=== PATIENT | male | born 1995 | race Caucasian/White ===

== ENCOUNTER 2017-02-05 17:43 | Emergency (ER) | payer BC ==
[2017-02-05 17:50] VITALS: BP 131/86
--- NOTE | 2017-02-05 17:54 | UC ---
Upper Extremity HPI - History of Current Complaint Chief Complaint: UCUpperExtremity Stated Complaint: HAND INJURY Time Seen by Provider: 02/05/17 17:52 Hx Obtained From: Patient Onset/Duration: Lasting Days Severity Initially: Moderate Severity Currently: Moderate Pain Scale Used: 0-10 Numeric - 5 Character: Sharp, Dull Aggravating Factor(s): Flexion, Extension Alleviating Factor(s): Compression, Elevation Associated Signs And Symptoms: Positive: Negative - Allergies/Home Medications Allergies/Adverse Reactions: Allergies Allergy/AdvReac Type Severity Reaction Status Date / Time No Known Allergies Allergy Verified 02/05/17 17:46 PMH/Surg Hx/FS Hx/Imm Hx Previously Healthy: Yes - Surgical History Surgical History: Yes Surgery Procedure, Year, and Place: acl left knee - Family History Known Family History: Positive: None - Social History Alcohol Use: None Substance Use Type: None Smoking Status (MU): Current Every Day Smoker Household Exposure Type: Cigarettes Review of Systems Constitutional: Negative Skin: Negative Eyes: Negative ENT: Negative Respiratory: Negative Cardiovascular: Negative Gastrointestinal: Negative Genitourinary: Negative Motor: Negative Neurovascular: Negative Musculoskeletal: Other: - RIGHT HAND PAIN Neurological: Negative Psychological: Negative All Other Systems Reviewed And Are Negative: Yes Physical Exam Triage Information Reviewed: Yes Vital Signs: Initial Vital Signs Temp 37.2 C 02/05/17 17:47 Pulse 85 02/05/17 17:47 Resp 16 02/05/17 17:47 BP 131/86 02/05/17 17:47 Pulse Ox 99 02/05/17 17:47 Eye Exam: Normal ENT Exam: Normal Dental Exam: Normal Neck exam: Normal Neck: Positive: 1 Respiratory Exam: Normal Cardiovascular Exam: Normal Abdominal Exam: Normal Musculoskeletal Exam: Normal Neurological Exam: Normal Psychological Exam: Normal Skin Exam: Normal Upper Extremity Course/Dx - Differential Dx/Diagnosis Provider Diagnoses: RIGHT HAND SPRAIN Discharge - Discharge Plan Condition: Stable Disposition: HOME Prescriptions: Naproxen TAB* [Naprosyn 250 mg TAB*] 500 mg PO Q8H PRN #30 tab PRN Reason: Pain Patient Education Materials: Wrist Sprain (ED) Referrals: Marvin Garcia MD [Primary Care Provider] -
--- NOTE | 2017-02-05 18:14 | RAD ---
INDICATION: Right hand injury COMPARISON: None TECHNIQUE: AP, lateral, and oblique views were obtained. FINDINGS: The bony structures, joint spaces, and soft tissues are normal for age. IMPRESSION: NEGATIVE EXAMINATION.
== END 2017-02-05 18:26 | disposition home or self-care (01) ==
LOC: UCEAST 17:43
DX: S63.91XA Sprain of unspecified part of right wrist and hand, initial encounter (principal); X58.XXXA Exposure to other specified factors, initial encounter; Y93.9 Activity, unspecified; Y92.9 Unspecified place or not applicable; F17.210 Nicotine dependence, cigarettes, uncomplicated
CPT/HCPCS: 99203; G0463

== ENCOUNTER 2017-04-06 20:09 | Emergency (ER) | payer BC ==
[2017-04-06 20:53] LABS: Urine Bilirubin Negative (Negative); Urine Glucose Negative (Negative); Urine Nitrite Negative (Negative)
[2017-04-06 21:16] LABS: Benzodiazepine Urine Screen None Detected (None Detect)
--- NOTE | 2017-04-06 21:33 | ED ---
George Chan Abhishek, scribed for Abram Martines on 04/06/17 at 2109 . Psychiatric Complaint - HPI Summary HPI Summary: This patient is a 21 year old M brought in by police, Police reports of suspected 941 since earlier today. Pt states his girlfriend called the [employer] due to disagreements. The patient rates the pain 0/10 in severity. Symptoms aggravated by nothing. Symptoms alleviated by nothing. Patient denies SI, HI, depressed state and also denies hearing voices. - History Of Current Complaint Chief Complaint: EDMentalHealth Time Seen by Provider: 04/06/17 20:30 Hx Obtained From: Patient Onset/Duration: Sudden Onset Aggravating Factor(s): Nothing Alleviating Factor(s): Nothing Associated Signs And Symptoms: Positive: Negative Related History: Negative For: Prior Psychiatric Issues - Allergies/Home Medications Allergies/Adverse Reactions: Allergies Allergy/AdvReac Type Severity Reaction Status Date / Time No Known Allergies Allergy Verified 02/05/17 17:46 PMH/Surg Hx/FS Hx/Imm Hx Psychiatric History: Denies: Hx Anxiety, Hx Depression, Hx Bipolar Disorder - Surgical History Surgery Procedure, Year, and Place: acl left knee Infectious Disease History: Denies: Hx Clostridium Difficile, Hx Hepatitis, Hx Human Immunodeficiency Virus (HIV), Hx of Known/Suspected MRSA, Hx Shingles, Hx Tuberculosis, Hx Known/ Suspected VRE, Hx Known/Suspected VRSA, History Other Infectious Disease, Traveled Outside the [place] in Last 30 Days - Family History Known Family History: Positive: Other - Negative psychiatric disorder Negative: Cardiac Disease, Hypertension - Social History Occupation: Employed Full-time Alcohol Use: Occasionally Substance Use Type: Reports: None Smoking Status (MU): Current Every Day Smoker Review of Systems Constitutional: Negative Eyes: Negative ENT: Negative Cardiovascular: Negative Respiratory: Negative Gastrointestinal: Negative Genitourinary: Negative Musculoskeletal: Negative Skin: Negative Neurological: Other - Denies "hearing voices" Psychological: Other - Negative SI, HI Negative: Depressed All Other Systems Reviewed And Are Negative: Yes Physical Exam - Summary Physical Exam Summary: Appearance: Well appearing, no pain distress Skin: warm, dry, reflects adequate perfusion Head/face: normal Eyes: EOMI, NOMI ENT: normal Neck: supple, non-tender Respiratory: CTA, breath sounds present Cardiovascular: RRR, pulses symmetrical Abdomen: non-tender, soft Bowel: present Musculoskeletal: normal, strength/ROM intact Neuro: normal, sensory motor intact, A&Ox3 Triage Information Reviewed: Yes Vital Signs On Initial Exam: Initial Vitals Temp Pulse Resp BP Pulse Ox 101.1 F 131 20 160/94 98 04/06/17 20:21 04/06/17 20:21 04/06/17 20:21 04/06/17 20:21 04/06/17 20:21 Vital Signs Reviewed: Yes - Osbaldo Coma Scale Coma Scale Total: 15 Diagnostics - Vital Signs Vital Signs Temp Pulse Resp BP Pulse Ox 04/06/17 20:21 101.1 F 131 20 160/94 98 - Laboratory Lab Results: Lab Results 04/06/17 Range/Units 20:45 Urine Color Yellow Urine Appearance Clear Urine pH 6.0 (5-9) Ur Specific [place] 1.004 L (1.010-1.030) Urine Protein Negative (Negative) Urine Ketones Negative (Negative) Urine Blood Negative (Negative) Urine Nitrate Negative (Negative) Urine Bilirubin Negative (Negative) Urine Urobilinogen Negative (Negative) Ur Leukocyte Esterase Negative (Negative) Urine Glucose Negative (Negative) Lab Statement: Any lab studies that have been ordered have been reviewed, and results considered in the medical decision making process. Course/Dx - Course Course Of Treatment: This patient is a 21 year old M brought in by police, Police reports of suspected 941 since earlier today. Pt states his girlfriend called the [employer] due to disagreements. Patient denies SI, HI, depressed state and also denies hearing voices. Patient is signed out to Dr. Ortiz, pending disposition, awaiting MHE. Dx is Depression and SI. The patient is agreeable with this plan. - Differential Dx/Clinical Impression Differential Diagnosis/HQI/PQRI: Positive: Depression, Suicidal Ideation Provider Diagnosis: Depression, Suicidal ideation Discharge - Discharge Plan Condition: Stable Disposition: OTHER Discharge Disposition Comment: Patient is signed out to Dr. Ortiz, pending disposition, awaiting [facility] Referrals: Marvin Garcia MD [Primary Care Provider] - The documentation as recorded by the George arias Abhishek accurately reflects the service I personally performed and the decisions made by , Abram Martines.
[2017-04-06 21:53] LABS: Hematocrit 45 % (42-52); Hemoglobin 15.8 g/dl (14.0-18.0); Mean Corpuscular HGB Conc 35 g/dl (31-36); Mean Corpuscular Hemoglobin 30 pg (27-31); Mean Corpuscular Volume 86 fL (80-94); Mean Platelet Volume 8 um3 (7.4-10.4); Red Blood Count 5.28 10^6/ul (4.0-5.4); Red Cell Distribution Width 13 % (10.5-15); White Blood Count 8.6 10^3/ul (3.5-10.8)
[2017-04-06 22:04] LABS: ALT 16 U/L (7-52); AST 18 U/L (13-39); Alkaline Phosphatase 24 U/L (34-104); Anion Gap 9 mmol/L (2-11); BUN/Creatinine Ratio 7.5 (8-20); Blood Urea Nitrogen 8 mg/dL (6-24); CO2 Carbon Dioxide 23 mmol/L (22-32); Calcium 9.9 mg/dL (8.6-10.3); Chloride 104 mmol/L (101-111); EGFR African American 111.3 (>60); EGFR Non-African American 86.6 (>60); Glucose 106 mg/dL (70-100); Potassium 3.4 mmol/L (3.5-5.0); Sodium 136 mmol/L (133-145)
[2017-04-06 22:32] LABS: Acetaminophen < 15 mcg/mL; Alcohol 20 mg/dL (<10); Salicylate < 2.50 mg/dL (<30)
[2017-04-06 22:35] VITALS: BP 156/99
[2017-04-06 22:46] LABS: TSH (Thyroid Stimulating Horm) 5.23 mcIU/mL (0.34-5.60)
== END 2017-04-07 02:41 ==
LOC: ED 20:09
DX: F32.9 Major depressive disorder, single episode, unspecified (principal); R45.851 Suicidal ideations
CPT/HCPCS: 36415; 80053; 80307; 80320; 80329; 81003; 84443; 85025; 99284; G0480

== ENCOUNTER 2018-03-05 11:27 | Emergency (ER) | payer BC, OTHER ==
[2018-03-05] MEDS ORDERED: Albuterol 2.5 MG/3 ML NEB.SOL* (0.083%) INH ONE (11:58)
[2018-03-05 12:14] VITALS: BP 145/85
--- NOTE | 2018-03-05 12:14 | ED ---
Respiratory - HPI Summary HPI Summary: cough for the last several days, former smoker, stopped recently. Wheezing intermittently. denies pleuritic pain or shortness of breath. cough productive of whitish sputum. - History of Current Complaint Stated Complaint: COUGH,CONGESTED Time Seen by Provider: 03/05/18 11:52 Hx Obtained From: Patient Onset/Duration: Gradual Onset, Lasting Days Initial Severity: Moderate Current Severity: Moderate Character: Wheezing, Cough (Productive) Sputum Amount: Small Sputum Color: White Aggravating Factor(s): Nothing Alleviating Factor(s): Nothing Associated Signs and Symptoms: Negative - Risk Factors Status Asthmaticus Risk Factors: Negative Pulmonary Embolism Risk Factors: Negative Cardiac Risk Factors: Negative Tuberculosis Risk Factors: Negative - Allergy/Home Medications Allergies/Adverse Reactions: Allergies Allergy/AdvReac Type Severity Reaction Status Date / Time No Known Allergies Allergy Verified 03/05/18 12:15 Home Medications: Home Medications Ibuprofen 2 tab PO TID PRN 03/05/18 [History Confirmed 03/05/18] PMH/Surg Hx/FS Hx/Imm Hx Previously Healthy: Yes Psychiatric History: Denies: Hx Anxiety, Hx Depression, Hx Bipolar Disorder, Hx of Violent Episodes Against Others - Surgical History Surgery Procedure, Year, and Place: acl left knee Infectious Disease History: Denies: Hx Clostridium Difficile, Hx Hepatitis, Hx Human Immunodeficiency Virus (HIV), Hx of Known/Suspected MRSA, Hx Shingles, Hx Tuberculosis, Hx Known/ Suspected VRE, Hx Known/Suspected VRSA, History Other Infectious Disease, Traveled Outside the [place] in Last 30 Days - Family History Known Family History: Positive: None, Other - Negative psychiatric disorder Negative: Cardiac Disease, Hypertension - Social History Alcohol Use: Occasionally Substance Use Type: Reports: None Smoking Status (MU): Current Every Day Smoker Review of Systems Positive: Chills Eyes: Negative ENT: Negative Cardiovascular: Negative Positive: Shortness Of Breath, Cough Gastrointestinal: Negative Genitourinary: Negative All Other Systems Reviewed And Are Negative: Yes Physical Exam Triage Information Reviewed: Yes Vital Signs Reviewed: Yes Appearance: Positive: Well-Appearing Skin: Positive: Warm, Dry Head/Face: Positive: Normal Head/Face Inspection Eyes: Positive: Normal ENT: Positive: Normal ENT inspection Neck: Positive: Supple Respiratory/Lung Sounds: Positive: Clear to Auscultation Cardiovascular: Positive: Normal Abdomen Description: Positive: Nontender Bowel Sounds: Positive: Present Musculoskeletal: Positive: Normal Neurological: Positive: Normal Disposition - Diagnoses Provider Diagnoses: Viral URI with cough Discharge - Sign-Out/Discharge Documenting (check all that apply): Patient Departure All imaging exams completed and their final reports reviewed: No Studies - Discharge Plan Condition: Good Disposition: HOME Prescriptions: Albuterol HFA INHALER* [Ventolin HFA Inhaler*] 2 puff INH Q6H PRN #1 mdi PRN Reason: Cough Referrals: No Primary Care Phys,NOPCP [Primary Care Provider] - - Billing Disposition and Condition Condition: GOOD Disposition: Home
== END 2018-03-05 13:16 | disposition home or self-care (01) ==
LOC: UCEAST 11:27
DX: J06.9 Acute upper respiratory infection, unspecified (principal); R05 Cough; F17.200 Nicotine dependence, unspecified, uncomplicated
CPT/HCPCS: 99212; G0463

== ENCOUNTER 2019-08-25 11:39 | Emergency (ER) | payer BC, OTHER ==
[2019-08-25 12:10] VITALS: BP 145/103
--- NOTE | 2019-08-25 12:17 | UC ---
Dental HPI - HPI Summary HPI Summary: Patient is a 24 yo male presents to urgent care for evaluation of left lower dental pain. Patient states her broken tooth for about a year ago. Patient states this is the second time in the last 6 months that has gotten painful. Patient states she's been taking Motrin with some improvement. Patient denies any ear pain or facial swelling. Patient without any intraoral edema. Patient is not immunocompromised. Patient has a dentist but states he could not afford to have the tooth pulled when he went about a year ago. Patient is currently on unemployment. Does not smoke or vape. Patient's medications as noted in the EMR by triage review this visit. - History of Current Complaint Chief Complaint: UCDentalProblem Stated Complaint: TOOTH PAIN Time Seen by Provider: 08/25/19 12:03 Hx Obtained From: Patient Severity: Severe Pain Intensity: 10 Pain Scale Used: 0-10 Numeric - Allergies/Home Medications Allergies/Adverse Reactions: Allergies Allergy/AdvReac Type Severity Reaction Status Date / Time No Known Allergies Allergy Verified 08/25/19 12:10 Home Medications: Home Medications Albuterol HFA INHALER* [Ventolin HFA Inhaler*] 2 puff INH Q6H PRN #1 mdi [Rx Confirmed 08/25/19] Ibuprofen 2 tab PO TID PRN 03/05/18 [History Confirmed 08/25/19] Lidocaine 2% JELLY* 1 applic TOPICAL Q4HR PRN #50 ml 08/25/19 [Rx] Penicillin VK 500 MG TAB(NF) [Penicillin VK 500 mg Tab] 500 mg PO TID #30 tab [Rx] PMH/Surg Hx/FS Hx/Imm Hx Previously Healthy: Yes - Surgical History Surgical History: None Surgery Procedure, Year, and Place: acl left knee - Family History Known Family History: Positive: None, Other - Negative psychiatric disorder Negative: Cardiac Disease, Hypertension - Social History 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 Alcohol Use: Occasionally Substance Use Type: None Smoking Status (MU): Former Smoker Household Exposure Type: Cigarettes - Immunization History Most Recent Tetanus Shot: UTD Review of Systems All Other Systems Reviewed And Are Negative: Yes Constitutional: Positive: Negative Skin: Positive: Negative Eyes: Positive: Negative ENT: Positive: Dental Pain Respiratory: Positive: Negative Cardiovascular: Positive: Negative Gastrointestinal: Positive: Negative Genitourinary: Positive: Negative Motor: Positive: Negative Neurovascular: Positive: Negative Musculoskeletal: Positive: Negative Neurological/Mental Status: Positive: Negative Is Patient Immunocompromised?: No Physical Exam - Summary Physical Exam Summary: Vital Signs Reviewed: Yes A+Ox3, no distress Eyes: Conjunctiva Clearm NOMI, EOM intact and full ENT: Hearing grossly normal TM x 2 clear turbinates wnl pt with broken # 18 with large cavity. Pt with large cavity #22. Pt with TTP #18 erythema at gumline.No drainage, no fluctuance, no bleeding in intraoral edema neck: supple no LA Respiratory: Positive: No respiratory distress, No accessory muscle use CTA throughout no w/r Cardiovascular: skin color reflect adequate perfusion Musculoskeletal Exam: FARAH x 4 without difficulty Neurological: Positive: Alert, ambulatory without difficulty Psychological: Positive: Normal Response To proivder Skin: Positive: no rash, no ecchymosis Triage Information Reviewed: Yes Vital Signs: Initial Vital Signs Temp 99.0 F 08/25/19 12:07 Pulse 74 08/25/19 12:07 Resp 20 08/25/19 12:07 BP 145/103 08/25/19 12:07 Pulse Ox 97 08/25/19 12:07 Dental Complaint Course/Dx - Course Course Of Treatment: Patient presents to urgent care with left lower dental pain. Patient states pain has been progressive for the last 4 days. Patient has used ibuprofen with little improvement. Patient states has a broken tooth and twice and has gotten infected and cause pain. Patient states he cannot afford to have it removed. On exam vital signs are stable. Patient with a large cavity and broken number. Tender to palpation. No fluctuance no obvious abscess. We'll prescribe patient pen VK. We'll also write for viscous lidocaine discussed with patient use. Recommend swish and spit warm salt water. REturn precautions discussed. Patient comfortable and agreeable with plan. Pts BP elevated - pt advised to f/u with PCP dental list given - Differential Dx/Diagnosis Provider Diagnosis: Pain, dental Discharge ED - Sign-Out/Discharge Documenting (check all that apply): Patient Departure All imaging exams completed and their final reports reviewed: No Studies - Discharge Plan Condition: Stable Disposition: HOME Prescriptions: Lidocaine 2% JELLY* 1 applic TOPICAL Q4HR PRN #50 ml PRN Reason: dental pain Penicillin VK 500 MG TAB(NF) [Penicillin VK 500 mg Tab] 500 mg PO TID #30 tab Patient Education Materials: Toothache (ED) Referrals: Marvin Garcia MD [Primary Care Provider] - Additional Instructions: - Okay to alternate ibuprofen (Advil, Motrin) 600mh and Tylenol every 3 hours for pain. Take with food. Do NOT take for more than 4-5 days - Take antibiotics as prescribed until gone - Okay to swish and spot warm, salty water over the afftected tooth 2-3 times a day - Okay to paint the tooth with Q tip with numbing medication every 4 horus as instructed - contact your dentist or one from the list provided to schedule a follow-up appointment. If you develop fevers, facial swelling, difficulty swalllowing or any other concerns it is recommended you go to the emergency department for further evaluation and treatment - Billing Disposition and Condition Condition: STABLE Disposition: Home
== END 2019-08-25 12:35 | disposition home or self-care (01) ==
LOC: UCEAST 11:39
DX: K08.89 Other specified disorders of teeth and supporting structures (principal); Z87.891 Personal history of nicotine dependence; K02.9 Dental caries, unspecified
CPT/HCPCS: 99211; G0463